=== PATIENT | female | born 1980 | race Asian ===

== ENCOUNTER → 2017-08-15 | Outpatient (CLI) | payer BC ==
[~2017-08-15] MED LIST: FERR325T51 PO; OXYC-57 PO; PRENTAB26 PO
[2017-08-15 16:54] LABS: URINE APPEARANCE CLEAR (CLEAR); URINE BILIRUBIN NEG (NEG); URINE COLOR DK YELLOW; URINE NITRITE NEG (NEG); UROBILINOGEN NEG (NEG)
[2017-08-15 17:00] LABS: MANUAL MICROSCOPIC REQUIRED? NO; REVIEW REQ? NO
== END | disposition home or self-care (01) ==
LOC: C.LABSPEC 15:51
PROVIDERS: ATTEND Obstetrics & Gynecology
DX: O09.521 Supervision of elderly multigravida, first trimester (principal)

== ENCOUNTER → 2017-08-21 | Outpatient (CLI) | payer BC | END | disposition home or self-care (01) | LOC: C.PAPS 08:04 | PROVIDERS: ATTEND Obstetrics & Gynecology | DX: Z01.419 Encounter for gynecological examination (general) (routine) without abnormal findings (principal) ==

== ENCOUNTER → 2017-08-21 | Outpatient (CLI) | payer BC ==
[2017-08-24 00:55] LABS: CHLAMYDIA TRACH RNA*** NOT DETECTED (NOT DETECTED); GC (NEIS GONORRHOEAE)RNA** NOT DETECTED (NOT DETECTED)
== END | disposition home or self-care (01) ==
LOC: C.LABSPEC 17:27
PROVIDERS: ATTEND Obstetrics & Gynecology
DX: O09.521 Supervision of elderly multigravida, first trimester (principal)

== ENCOUNTER → 2017-08-21 | Outpatient (CLI) | payer BC ==
[2017-08-21 15:38] LABS: BASO % 0.1 %; BASO ABS # 0.01 K/uL (0-0.2); COMPLETE YES; EOS % 2.1 %; HEMATOCRIT 36.2 % (37-47); IG% 0.6 %; LYMPH % 19.4 %; MEAN CELL VOLUME 89.4 fL (80-100); MEAN CORPUSCULAR HEMOGLOBIN 30.6 pg (25-34); MEAN CORPUSCULAR HGB CONC 34.3 g/dl (32-36); MEAN PLATELET VOLUME 9.5 fL (7.4-10.4); MONO % 9.2 %; NEUT % 68.6 %; PLATELET COUNT 231 K/uL (130-400); RED BLOOD COUNT 4.05 M/uL (4.2-5.4); WHITE BLOOD COUNT 7.72 K/uL (4.8-10.8)
== END | disposition home or self-care (01) ==
LOC: C.LAB1850 14:41
PROVIDERS: ATTEND Obstetrics & Gynecology
DX: O09.521 Supervision of elderly multigravida, first trimester (principal)

== ENCOUNTER → 2018-01-04 | Outpatient (CLI) | payer BC, OTHER ==
[2018-01-04 15:19] LABS: HEMATOCRIT 33.6 % (37-47); HEMOGLOBIN 11.6 g/dL (12.0-16.0)
== END | disposition home or self-care (01) ==
LOC: C.LAB1850 14:13
PROVIDERS: ATTEND Obstetrics & Gynecology
DX: O09.523 Supervision of elderly multigravida, third trimester (principal)

== ENCOUNTER → 2018-02-01 | Outpatient (CLI) | payer OTHER | END | disposition home or self-care (01) | LOC: C.LABSPEC 13:38 | PROVIDERS: ATTEND Obstetrics & Gynecology | DX: O23.40 Unspecified infection of urinary tract in pregnancy, unspecified trimester (principal) ==

== ENCOUNTER 2018-03-25 04:49 | Inpatient (IN) | payer OTHER ==
[2018-03-25] VITALS (10 sets, daily range): BP systolic 99–118; BP diastolic 62–68; PULSE 67–80; TEMP 36.9–37.6; O2SAT 94–97; Ht 157.5 cm; Wt 68.0 kg
[~2018-03-25] VITALS: Ht 157.5 cm; Wt 68.0 kg
[~2018-03-25 04:49] MED LIST changes: -FERR325T51 PO; -OXYC-57 PO
[2018-03-25] MEDS ORDERED: LACTATED RINGER'S 1000ML 1,000 ML IV PRN (04:51)
[2018-03-25] MEDS ORDERED: BUPIVACAINE 0.25% 30 ML VIAL ONE (05:06)
[2018-03-25] MEDS ORDERED: EpHEDrine SULFATE INJ 50 MG/ML AMP ONE (05:07)
[2018-03-25] MEDS ORDERED: FENTANYL CITRATE INJ 50 MCG/1 ML 2 ML VIAL ONE ×2 (05:07→13:33)
[2018-03-25] MEDS ORDERED: FENTANYL 2MCG/ML ROPIV 1.25MG/ML 100ML BAG ONE (05:08)
[2018-03-25] MEDS ORDERED: PENICILLIN G POTASSIUM IV 6 MU in DEXTROSE 5% 250ML 250 ML IV ONE (05:30)
[2018-03-25] MEDS ORDERED: PENICILLIN G POTASSIUM IV 3 MU in DEXTROSE 5% 100ML 100 ML IV PRN (05:30)
[2018-03-25 05:41] LABS: HEMOGLOBIN 12.8 g/dL (12.0-16.0); MEAN CELL VOLUME 88.5 fL (80-100); MEAN CORPUSCULAR HEMOGLOBIN 31.4 pg (25-34); MEAN CORPUSCULAR HGB CONC 35.6 g/dl (32-36); MEAN PLATELET VOLUME 10.1 fL (7.4-10.4); PLATELET COUNT 158 K/uL (130-400); RED CELL DISTRIBUTION WIDTH CV 13.7 % (11.5-14.5); WHITE BLOOD COUNT 9.32 K/uL (4.8-10.8)
[2018-03-25] MEDS ORDERED: NALOXONE HCL INJ 1 MG in SODIUM CHLORIDE 0.9% 1000ML 1,000 ML IV PRN (06:23)
[2018-03-25] MEDS ORDERED: LACTATED RINGER'S 1000ML 500 ML IV PRN ×2 (06:23→09:57)
[2018-03-25] MEDS ORDERED: NALBUPHINE HCL INJ 10 MG/ML AMP IV PRN (06:30)
[2018-03-25] MEDS ORDERED: EpHEDrine SULFATE INJ 50 MG/ML AMP IV PRN (06:30)
[2018-03-25] MEDS ORDERED: FENTANYL 2MCG/ML ROPIV 1.25MG/ML 100ML BAG EPI PRN (06:30)
[2018-03-25] MEDS ORDERED: DiphenhydrAMINE HCL 50 MG/ML VIAL IV PRN (06:30)
[2018-03-25] MEDS ORDERED: NALOXONE HCL INJ 0.4 MG/1 ML VIAL/CARP IV PRN (06:30)
[2018-03-25] MEDS: LACTATED RINGER'S 1000ML 1,000 ML IV SCH ×3 (07:06→12:44)
[2018-03-25] MEDS ORDERED: OXYTOCIN 30 UNITS/500ML NSS IV PRN (10:00)
[2018-03-25] MEDS ORDERED: CITRIC ACID/SODIUM CITRATE 15 ML UDC ONE (12:54)
--- NOTE | 2018-03-25 13:15 | History & Physical Bridge Note ---
H&P Re-Evaluation Bridge Note: I have examined the patient, reviewed the History & Physical and in the interval since the performance of the History & Physical I have noted the following changes of clinical significance: No changes noted : Patient presented in active labor & progressed to an anterior lip dilation. Contractions were noted to be inadequate by IUPC. pitocin autmentation of labor was attempted but repeated deep heart decelerations occured. Cervical exam remained unchange. After discussion with both patient & her we will now proceed with repeat LTCS.
[2018-03-25] MEDS ORDERED: CEFAZOLIN IV 2,000 MG in SYRINGE 0 ML IV SCH (13:30)
[2018-03-25] MEDS ORDERED: MoRPHine SULFATE PF 1 MG/ML 10 ML AMP/VIAL ONE (13:43)
[2018-03-25] MEDS ORDERED: LIDOCAINE/EPINEPHRINE 2% 1:200,000 20 ML SDV ONE ×2 (13:43→13:52)
[2018-03-25] MEDS ORDERED: OXYTOCIN INJ 10 UNITS/ML VIAL ONE ×2 (13:43→13:44)
[2018-03-25] MEDS ORDERED: SENNA 8.6 MG TAB PO PRN (14:45)
[2018-03-25] MEDS ORDERED: MAGNESIUM HYDROXIDE SUSP 30 ML UDC PO PRN (14:45)
[2018-03-25] MEDS ORDERED: SUPERCREAM 0.870 % 15GM JAR EXT PRN (14:45)
[2018-03-25] MEDS ORDERED: BENZOCAINE 20% AER SPR 82.5 GM CAN EXT PRN (14:45)
[2018-03-25] MEDS ORDERED: DIPHTHERIA/TETANUS/PERTUSSIS 0.5 ML SYR/VIAL IM. ONE (14:45)
[2018-03-25] MEDS ORDERED: LANOLIN OINT EXT PRN (14:45)
[2018-03-25] MEDS ORDERED: HYDROCORTISONE ACETATE 25 MG SUPP PR PRN (14:45)
--- NOTE | 2018-03-25 14:47 | [facility] Post Operative Brief Note ---
Immediate Operative Summary Operative Date Mar 25, 2018. Pre-Operative Diagnosis 39 weeks gestation failed arrest of descent & dilation non-reassuring heart rate pattern Post-Operative Diagnosis same plus delviery of viable female Procedure(s) Performed repeat low transverse section Surgeon Zoë Menendez MD County Judge Surgeon(s) Henrique Green PGY-1 Estimated Blood Loss 500 Findings Consistent with Post-Op Diagnosis Fluids (cc crystalloids) 1900 Specimens placenta Drains Jerry to straight drainage Anesthesia Type MAC Epidural Complication(s) none Disposition Accompanied Pt To Recover: yes Disposition: L&D
[2018-03-25] MEDS ORDERED: MoRPHine SULFATE PF 1 MG/ML 10 ML AMP/VIAL EPI PRN (15:00)
[2018-03-25] MEDS ORDERED: CONTINUE MEDICATION ONE (15:00)
[2018-03-25] MEDS ORDERED: KETOROLAC TROMETHAMINE 30 MG/ML VIAL IV. PRN (15:00)
[2018-03-25] MEDS ORDERED: DC INTRASPINAL MORPHINE PRN (15:00)
[2018-03-25] MEDS ORDERED: MoRPHine SULFATE 2 MG/ML CARP IV PRN (15:00)
[2018-03-25] MEDS ORDERED: MEPERIDINE HCL 25 MG/ML CARP IV PRN (15:00)
[2018-03-25] MEDS ORDERED: NO NARCOTICS OR SEDATIVES SCH (15:00)
[2018-03-25] MEDS: OXYTOCIN INJ 20 UNITS in LACTATED RINGER'S 1000ML 1,000 ML IV SCH ×2 (15:43→22:59)
[2018-03-25] MEDS: ONDANSETRON INJ 2 MG/ML 2 ML VIAL IV PRN ×2 (15:44→23:21)
--- NOTE | 2018-03-25 15:46 | Anesthesiology Progress Note ---
Anesthesia Post Op Note Date & Time Mar 25, 2018 at 15:45 Vital Signs Pain Intensity: 0.0 Notes Mental Status: alert / awake / arousable, participated in evaluation Pt Amnestic to Procedure: Yes Nausea / Vomiting: adequately controlled Pain: adequately controlled Airway Patency, RR, SpO2: stable & adequate BP & HR: stable & adequate Hydration State: stable & adequate Neuraxial Anesthesia: was administered, sensory block is resolving Anesthetic Complications: no major complications apparent
--- NOTE | 2018-03-25 17:12 | OPERATIVE REPORT ---
DATE OF OPERATION: 03/25/2018 SURGEON: Zoë Menendez MD HARDWARE SALES ASSISTANT: Henrique Green, PGY-1. PRINCIPAL DIAGNOSES: Intrauterine at 40 weeks, failed vaginal after attempt, arrest of dilation and descent, and nonreassuring heart rate pattern. HISTORY: The patient is a 38-year-old 3, para 1-0-1-1 female, EDC of 03/25/2018 who presented on the morning of her scheduled repeat section in active labor. She progressed rapidly to 9 cm dilated at which point, there was moderate variable decelerations as well as inadequate contractions. She remained at 9 cm and progressed to anterior lip but the presenting part still remained at approximately -2 to -1 station. Pitocin augmentation was attempted after an IUPC was placed, however, there continued to be [id number] decelerations with contractions. It is felt prudent at this point to proceed with repeat transverse section. The patient and her are agreeable to this plan. GROSS FINDINGS: Uterus is gravid and consistent with her term and size. Bilateral ovaries and fallopian tubes are grossly normal. PROCEDURE: After patient received adequate epidural anesthesia, she was prepped and draped in usual fashion. A low transverse skin incision was made just inferior to the previous scar as there was a keloid formation present. The scar was removed in its entirety using Allis clamps and Metzenbaum scissors. The incision was taken to the fascia with the same scalpel. The fascial incision was then extended with Alexander scissors. The underlying rectus muscles were bluntly and sharply dissected along the midline. There was a dense fibrous tissue in the abdominal wall near the umbilicus which a scalpel was used to incise for better visibility. The bladder was then taken down off the anterior surface of the uterus and placed behind the bladder blade. The lower uterine segment was entered with the scalpel and extended transversely. The was delivered from the vertex occiput anterior presentation with moderate fundal pressure and a vacuum assist. There was clear fluid upon entering the amniotic sac. There was vigorous crying and the was moving all 4 limbs upon delivery. The cord was clamped and cut and handed off to Dr. Gonsalez who was in attendance as hand rug braider. The placenta was then expressed intact with the 3-vessel cord and cord gases were sent. The uterus was then exteriorized and covered with clean lap sponge. The uterine cavity was explored and found to be free off any placental tissue or membranes. The uterus was closed in 2 layers in a running locking imbricating fashion with 0 Monocryl. Hemostasis was noted to be excellent. The posterior cul-de-sac was then irrigated with normal saline. The uterus was then placed back inside the abdominal cavity and the gutters were explored and found to be free of any clot or fluid. The rectus muscles were brought together on the midline with individual stitches of 0 Monocryl after ensuring that the uterine incision was still dry. The fascia was then closed in a running fashion with 0 Vicryl. The edges of the skin incision were then freed up with the Bovie. After irrigating the adipose layer, the skin was closed in a subcuticular fashion with 4-0 Vicryl. Urine was clear at the end of the case. Mother and were doing well after delivery. I attest to the content of the Intraoperative Record and any orders documented therein. Any exceptions are noted below. GONZÁLEZ
[2018-03-25] MEDS: DOCUSATE SODIUM 100 MG CAP PO SCH (20:02)
[2018-03-26] VITALS (12 sets, daily range): BP systolic 92–98; BP diastolic 53–58; PULSE 69–81; TEMP 36.3–37.4; O2SAT 94–96
[2018-03-26 06:38] LABS: BASO % 0.1 %; BASO ABS # 0.01 K/uL (0-0.2); EOS % 0.3 %; EOS ABS # 0.02 K/uL (0-0.5); HEMATOCRIT 30.9 % (37-47); HEMOGLOBIN 10.4 g/dL (12.0-16.0); IG# 0.01 K/uL (0.00-0.02); LYMPH % 19.6 %; LYMPH ABS # 1.33 K/uL (1.2-3.4); MEAN CELL VOLUME 90.1 fL (80-100); MEAN CORPUSCULAR HEMOGLOBIN 30.3 pg (25-34); MEAN CORPUSCULAR HGB CONC 33.7 g/dl (32-36); MEAN PLATELET VOLUME 9.9 fL (7.4-10.4); MONO % 6.8 %; MONO ABS # 0.46 K/uL (0.11-0.59); NEUT % 73.1 %; NEUT ABS # 4.97 K/uL (1.4-6.5); PLATELET COUNT 140 K/uL (130-400); RED CELL DISTRIBUTION WIDTH CV 13.8 % (11.5-14.5); RED CELL DISTRIBUTION WIDTH SD 45.6 fL (36.4-46.3)
--- NOTE | 2018-03-26 06:44 | Progress Note ---
Subjective March 26, 2018. Subjective conversation w/ patient Ambulation: limited ambulation Voiding: bacon catheter in place Passing Gas: No Diet Tolerance: Clear Liquids Lochia: Moderate Feeding Type: Breast Feeding Pain: 2/10, improved with analgesia Review of Systems Constitutional: No fever, No chills Respiratory: + cough, No shortness of breath Cardiac: No chest pain Abdomen: No nausea, No vomiting Objective Vital Signs Date Time Temp Pulse Resp B/P (MAP) Pulse Ox O2 Delivery O2 Flow Rate FiO2 03/26/18 04:30 18 94 03/26/18 04:00 37.4 78 16 92/58 (69) 95 Room Air 03/26/18 03:30 18 95 03/26/18 02:25 18 95 03/26/18 01:30 18 96 03/26/18 00:30 16 95 03/25/18 23:25 36.9 80 16 99/68 (78) 95 Room Air 03/25/18 23:25 18 95 03/25/18 23:25 95 Room Air 03/25/18 22:30 18 95 03/25/18 21:27 20 96 03/25/18 20:30 18 97 03/25/18 20:10 37.0 80 18 118/62 (80) 95 Room Air 03/25/18 19:30 18 95 03/25/18 18:44 14 94 03/25/18 18:40 37.2 67 14 112/62 (79) 94 Room Air 03/25/18 17:48 16 95 03/25/18 17:44 37.6 72 16 114/63 (80) 95 Room Air 03/25/18 17:20 Room Air Physical Exam General Appearance: WELL-APPEARING, WD/WN, NO APPARENT DISTRESS Respiratory/Chest: lungs clear, normal breath sounds Cardiovascular: regular rate, rhythm Abdomen: soft Fundus: Firm, Tender, Relation to Umbilicus (1 above) Incision Description: Clean, Dry & Intact Extremities: no pedal edema Laboratory Results Last 24 Hours Test 03/25/18 07:47 03/26/18 06:08 Bedside Glucose 106 mg/dl White Blood Count 6.80 K/uL Red Blood Count 3.43 M/uL Hemoglobin 10.4 g/dL Hematocrit 30.9 % Mean Corpuscular Volume 90.1 fL Mean Corpuscular Hemoglobin 30.3 pg Mean Corpuscular Hemoglobin Concent 33.7 g/dl Platelet Count 140 K/uL Mean Platelet Volume 9.9 fL Neutrophils (%) (Auto) 73.1 % Lymphocytes (%) (Auto) 19.6 % Monocytes (%) (Auto) 6.8 % Eosinophils (%) (Auto) 0.3 % Basophils (%) (Auto) 0.1 % Neutrophils # (Auto) 4.97 K/uL Lymphocytes # (Auto) 1.33 K/uL Monocytes # (Auto) 0.46 K/uL Eosinophils # (Auto) 0.02 K/uL Basophils # (Auto) 0.01 K/uL RDW Standard Deviation 45.6 fL RDW Coefficient of Variation 13.8 % Immature Granulocyte % (Auto) 0.1 % Immature Granulocyte # (Auto) 0.01 K/uL Medications Current Inpatient Medications Medications (Trade) Dose Ordered Sig/Yang Route Start Time Stop Time Status Last Admin Dose Admin Lactated Ringer's 1,000 ml @ 125 mls/hr Q8H IV 03/25/18 04:51 03/27/18 04:50 03/25/18 12:44 125 MLS/HR Lactated Ringer's 1,000 ml @ 999 mls/hr Q1H1M PRN IV 03/25/18 04:51 04/24/18 04:50 03/25/18 05:51 999 MLS/HR Penicillin G Potassium 3 mu/ Dextrose 106 ml @ 100 mls/hr Q4H PRN IV 03/25/18 05:30 03/27/18 05:29 03/25/18 09:31 100 MLS/HR Naloxone HCl (Narcan Inj) 0.1 mg UD PRN IV 03/25/18 06:30 03/26/18 10:00 Lactated Ringer's 500 ml @ 999 mls/hr Q31M PRN IV 03/25/18 06:23 03/26/18 10:00 Ephedrine Sulfate (EpHEDrine SULFATE INJ) 10 mg Q5M PRN IV 03/25/18 06:30 03/26/18 10:00 Diphenhydramine HCl (Benadryl Inj) 25 mg Q6H PRN IV 03/25/18 06:30 03/26/18 10:00 Nalbuphine HCl (Nubain Inj) 5 mg Q10M PRN IV 03/25/18 06:30 03/26/18 10:00 Naloxone HCl 1 mg/ Sodium Chloride 1,002.5 ml @ 50 mls/hr Q20H3M PRN IV 03/25/18 06:23 03/26/18 10:00 Ondansetron HCl (Zofran Inj) 4 mg Q6H PRN IV 03/25/18 06:30 03/26/18 10:00 03/25/18 23:21 4 MG Oxytocin (Pitocin IV) 30 units UD PRN IV 03/25/18 10:00 04/24/18 09:59 03/25/18 12:03 30 UNITS Lactated Ringer's 500 ml @ 999 mls/hr Q31M PRN IV 03/25/18 09:57 04/24/18 09:56 Cefazolin Sodium 2000 mg/Syringe 15 ml @ 225 mls/hr PREOP@1330 IV 03/25/18 13:30 03/26/18 13:29 03/25/18 13:32 225 MLS/HR Oxytocin 20 units/ Lactated Ringer's 1,002 ml @ 125 mls/hr Q8H1M IV 03/25/18 14:45 03/26/18 06:46 03/25/18 22:59 125 MLS/HR Ketorolac Tromethamine (Toradol Inj) 30 mg Q6H PRN IV. 03/26/18 10:00 03/31/18 09:59 Oxycodone/ Acetaminophen (Percocet 5-325mg Tab) 1 tab Q4H PRN PO 03/26/18 10:00 04/09/18 09:59 Oxycodone/ Acetaminophen (Percocet 5-325mg Tab) 2 tab Q4H PRN PO 03/26/18 10:00 04/09/18 09:59 Ibuprofen (Motrin Tab) 600 mg Q4H PRN PO 03/25/18 14:45 04/24/18 14:44 Ondansetron HCl (Zofran Inj) 4 mg Q4H PRN IV 03/26/18 10:00 04/25/18 09:59 Prenat Multivit/ [place]/Iron/Folic Ac ( Vitamin Tab) 1 tab DAILY PO 03/26/18 08:00 04/25/18 07:59 Bisacodyl (Dulcolax Tab) 5 mg HS ONCE PO 03/26/18 22:00 03/26/18 22:01 Bisacodyl (Dulcolax Supp) 10 mg PRN PRN ND 03/27/18 14:45 04/26/18 14:44 Docusate Sodium (coLACE CAP) 100 mg BID PO 03/25/18 20:00 04/24/18 19:59 03/25/18 20:02 100 MG Magnesium Hydroxide (Milk Of Magnesia Susp) 30 ml HS PRN PO 03/25/18 14:45 04/24/18 14:44 Cocaine HCl (Supercream 0.870% Cr) BID PRN EXT 03/25/18 14:45 04/08/18 14:44 Lanolin (Lanolin Oint) PRN PRN EXT 03/25/18 14:45 04/24/18 14:44 Hydrocortisone Acetate (Anusol Hc Supp) 25 mg BID PRN ND 03/25/18 14:45 04/24/18 14:44 Benzocaine (Dermoplast Aero Spr) 1 appln PRN PRN EXT 03/25/18 14:45 04/24/18 14:44 Zolpidem Tartrate (Ambien Tab) 5 mg HSZ PRN PO 03/26/18 10:00 04/25/18 09:59 Diphenhydramine HCl (Benadryl Cap) 25 mg QID PRN PO 03/26/18 10:00 04/25/18 09:59 Diphenhydramine HCl (Benadryl Inj) 25 mg QID PRN IV 03/26/18 10:00 04/25/18 09:59 Senna (Senokot Tab) 17.2 mg HS PRN PO 03/25/18 14:45 04/24/18 14:44 Ketorolac Tromethamine (Toradol Inj) 30 mg Q6H PRN IV. 03/25/18 15:00 03/26/18 10:00 03/25/18 17:15 30 MG Meperidine HCl (Demerol Inj) 25 mg Q15M PRN IV 03/25/18 15:00 03/26/18 10:00 Miscellaneous Information (Dc Intraspinal Morphine) 1 ea DIRECTED PRN N/A 03/25/18 15:00 03/26/18 10:00 Miscellaneous Information (No Narcotics Or Sedatives) 1 ea UD N/A 03/25/18 15:00 03/26/18 10:00 Morphine Sulfate (Duramorph Pf Inj) TODAY PRN EPI 03/25/18 15:00 03/26/18 10:00 Morphine Sulfate (MoRPHine SULFATE INJ) 2 mg Q6H PRN IV 03/25/18 15:00 03/26/18 10:00 Assessment and Plan Post-Op Day#: 1 Continue Routine Care: Resident Physician Supervision Note: I interviewed and examined the patient. Discussed with Dr. Duong and agree with findings and plan as documented in the note. Any exceptions or clarifications are listed here: [None] Documented By: Zoë Diaz Laquita 38 s/p repeat due to failed day 1 - O+, Rubella Immune, GBS +ve - pt doing well clinically - Vital Signs reviewed and WNL - Hemoglobin Reviewed. 12.8 -> 10.4 - remove catheter this AM and encourage ambulation - monitor and control pain with analgesia - advance diet as tolerated Henrique Green, PGY1 Resident Tracking Resident Involvement: Resident Care Provided Care Provided: OB Delivery
--- NOTE | 2018-03-26 07:10 | Discharge Instructions ---
Discharge Instructions Date of Service March 26, 2018. Admission Reason for Admission: LABOR Discharge Discharge Diagnosis / Problem: Discharge Goals Goal(s): Routine recovery after Medications Continue Dispensed Medications: supercream, dermaplast, tucks, lansinoh Activity Recommendations Activity Limitations: per Instructions/Follow-up section . Instructions / Follow-Up Instructions / Follow-Up ACTIVITY RECOMMENDATIONS: * Gradual return to full activity over the next 2-3 weeks. * No lifting - nothing heavier than baby over the next 2-3 weeks. * Do not engage in vigorous exercise, sexual activity or sports until cleared by your physician. * Do not drive or operate any motorized equipment until cleared by your physician. * You may shower/bathe daily. MEDICATIONS: For discomfort or pain, you may use Acetaminophen (Tylenol), Ibuprofen (Advil), or Naproxen (Aleve) following the package directions. For constipation you may use Colace following the package directions. BREAST CARE: If you are not breast feeding: * Wear a supportive bra 24 hours a day for one to two weeks. * Avoid stimulating your breasts and nipples as much as possible during the first few weeks after delivery. * When taking a shower, have the warm water hit your back, not breasts. * When your breasts feel full, apply ice packs. Usually three to four times a day helps ease the discomfort. * Take a mild pain medication (Tylenol / Motrin) when you are uncomfortable. If breast feeding: * Use breast milk to lubricate nipples. Lansinoh cream may be used for sore nipples. You do not need to remove cream prior to breast feeding. If using a different brand of cream, check the label for directions regarding removal of cream prior to nursing. * Wear a supportive bra. * If having problems with breasts or breast feeding, call a decorator consultant or your health care provider. SPECIAL CARE INSTRUCTIONS: When you are discharged from the hospital, it is important for you to follow the instructions listed below: * During the first week at home, you should be able to care for yourself and your baby. In addition, the usual light household activities are encouraged. * Limit your activities to the way you feel. Do not try to clean the house or move furniture. Be sensible. * If you actively engage in sports and have done so up until the time of your delivery, you may resume these activities as soon as you feel able. This may take up to one month or even longer. Use good judgment. * Continue to take your vitamins for at least six weeks after the of your baby. * Your diet need not be limited unless you were on a special diet before your delivery. Breast-feeding mothers need around 2500 calories per day and at least 64-80 ounces of fluid per day (8 to 10 glasses). * You should eat foods from the four major food groups. Crash diets or fad diets are to be avoided. Eating lean meats, fresh fruits and vegetables, low-fat dairy products, high fiber foods and a regular exercise program, will help you get back to your pre- weight without putting your health at risk. * Constipation is sometimes a problem after delivery. Take a mild laxative as needed. If breast feeding, Milk of Magnesia is acceptable to use. You may use a suppository or Fleets enema. * A daily shower or tub bath is suggested. Wash incision daily with warm soapy water and pat dry. It doesn't need to be covered unless drainage is present. * A bloody vaginal discharge will usually continue until around four weeks . A small amount of bleeding may continue for as long as six weeks. Vaginal discharge changes from the bright red bleeding after delivery to pink then brownish and finally yellowish-pink before becoming white and disappearing. * Bleeding may increase with activity. Your first period may come in 4-8 weeks. If you are breast feeding, your period may be delayed even longer. * [place] (sex) can begin whenever both you and your partner feel comfortable and do not have any form of genital infection. It is recommended that you wait at least six weeks for internal and external healing to occur. If you have questions, please talk to your health care practitioner. A condom should be used to prevent infection and . * Foreplay, gentle intercourse and lubrication is very important the first several times to prevent pain. A water-based lubricant such as K-Y jelly or Astroglide may be used. * If you have RH negative blood and your baby is RH positive, you will receive RHOGAM by injection prior to discharge. The nurse will give you a card to keep with you that has the date and place that you received RHOGAM after delivery. * During your care, you had a Rubella screen done to check for the presence of rubella antibodies in your blood. If your test was negative, you will receive a Rubella vaccine prior to discharge. This vaccine may cause a fever, soreness at the injection site and flu-like symptoms. If these symptoms persist, notify your health care practitioner. is not advised for one month after a Rubella vaccine. * Verbalizes understanding of car seat law as reviewed with patient nursing. * Car Seat hand-out given and reviewed with patient by nursing. * Shaken baby information reviewed with patient by nursing. Call you doctor if: * Heavy bleeding (saturating several pads an hour) or passing clots the size of your fist. * A fever >101 degrees F (38.3 degrees C) on two occasions four hours apart and /or chills. * Unusual pain in the pelvic or vaginal areas. * Call the doctor for any increased redness, drainage or swelling around the incision and any pain unrelieved by prescribed pain medication. * "Baby Blues" lasting longer than two weeks. If you have any questions or concerns, call your health care practitioner at . FOLLOW UP VISIT: * Please call the office at to schedule a 6 week examination. It is important you keep this appointment. It is important for you to make arrangements for either yearly or twice yearly check-ups thereafter. Current Hospital Diet Patient's current hospital diet: Clear Liquid Diet Discharge Diet Recommended Diet: Regular Diet Procedures Procedures Performed: repeat low transverse section Pending Studies Studies pending at discharge: no Medical Emergencies . Who to Call and When: Medical Emergencies: If at any time you feel your situation is an emergency, please call [phone] immediately. . Non-Emergent Contact Non-Emergency issues call your: Primary Care Provider . . "Provider Documentation" section prepared by Henrique Green. .
[2018-03-26] MEDS ORDERED: PRENATAL VITAMIN TAB PO SCH (08:00)
[2018-03-26] MEDS: PRENATAL VITAMIN TAB PO SCH (08:31)
[2018-03-26] MEDS ORDERED: MTR600X PO (08:31)
[2018-03-26] MEDS ORDERED: OXYC-57 PO (08:31)
[2018-03-26] MEDS: DOCUSATE SODIUM 100 MG CAP PO SCH ×2 (08:31→19:46)
[2018-03-26] MEDS ORDERED: ZOLPIDEM TARTRATE 5 MG TAB PO PRN (10:00)
[2018-03-26] MEDS ORDERED: KETOROLAC TROMETHAMINE 30 MG/ML VIAL IV. PRN (10:00)
[2018-03-26] MEDS ORDERED: ONDANSETRON INJ 2 MG/ML 2 ML VIAL IV PRN (10:00)
[2018-03-26] MEDS ORDERED: DiphenhydrAMINE HCL 50 MG/ML VIAL IV PRN (10:00)
[2018-03-26] MEDS ORDERED: OXYCODONE/ACETAMINOPHEN 5-325 TAB PO PRN ×2 (10:00)
[2018-03-26] MEDS: IBUPROFEN 600 MG TAB PO PRN (19:48)
[2018-03-26] MEDS ORDERED: BISACODYL 5 MG TABEC PO ONE (22:00)
[2018-03-27 00:30] VITALS: BP 100/61; PULSE 64; TEMP 36.9
[2018-03-27 06:23] LABS: HEMATOCRIT 29.1 % (37-47)
--- NOTE | 2018-03-27 07:02 | Progress Note ---
Subjective March 27, 2018. Subjective conversation w/ patient Ambulation: ambulating normally Voiding: no voiding problems, bacon catheter in place Diet Tolerance: Regular Diet Lochia: Moderate Feeding Type: Breast Feeding Pain: 2/10 pain, improved with analgesia Review of Systems Constitutional: No fever, No chills Respiratory: + cough (improving cough from prior viral illness) Cardiac: No chest pain Abdomen: No nausea, No vomiting Objective Vital Signs Date Time Temp Pulse Resp B/P (MAP) Pulse Ox O2 Delivery O2 Flow Rate FiO2 03/27/18 00:30 Room Air 03/27/18 00:30 36.9 64 18 100/61 (74) Room Air 03/26/18 15:05 95 Room Air 03/26/18 15:05 36.9 81 16 96/55 (69) 95 Room Air 03/26/18 11:25 37.3 76 16 93/53 (66) 95 Room Air 03/26/18 09:30 16 96 03/26/18 08:30 16 95 03/26/18 08:00 36.3 69 18 98/58 (71) 94 Room Air 03/26/18 07:30 95 Room Air 03/26/18 07:30 16 95 Physical Exam General Appearance: WELL-APPEARING, WD/WN, NO APPARENT DISTRESS Respiratory/Chest: lungs clear, normal breath sounds Cardiovascular: regular rate, rhythm Abdomen: soft Fundus: Firm, Tender, Relation to Umbilicus (1 below) Incision Description: Clean, Dry & Intact Extremities: no pedal edema, no calf tenderness Laboratory Results Last 24 Hours Test 03/27/18 06:07 Hemoglobin 10.0 g/dL Hematocrit 29.1 % Assessment and Plan Post-Op Day#: 2 Continue Routine Care: 38 s/p repeat due to failed day 2 - O+, Rubella Immune, GBS +ve - pt doing well clinically - Vital Signs reviewed and WNL - Hemoglobin stable at 10 - monitor and control pain with analgesia - anticipate discharge tonight - will review d/c instructions Resident Physician Supervision Note: I interviewed and examined the patient. Discussed with Dr. Green and agree with findings and plan as documented in the note. Any exceptions or clarifications are listed here: Patient desires d/c today. Meeting criteria. Instructions given. Documented By: Suly Bearden Resident Tracking Resident Involvement: Resident Care Provided Care Provided: OB Delivery
[2018-03-27 08:30] VITALS: BP 122/72; PULSE 71; TEMP 36.7; O2SAT 97
[2018-03-27] MEDS: DOCUSATE SODIUM 100 MG CAP PO SCH (08:30)
[2018-03-27] MEDS: PRENATAL VITAMIN TAB PO SCH (08:30)
[2018-03-27] MEDS: IBUPROFEN 600 MG TAB PO PRN (08:30)
[2018-03-27] MEDS ORDERED: BISACODYL 10 MG SUPP PR PRN (14:45)
[2018-03-27 15:30] VITALS: BP 112/68; PULSE 64; TEMP 36.7; O2SAT 96
[2018-03-27 17:43] VITALS: BP_DIAS 68; PULSE 64; TEMP 36.7
--- NOTE | 2018-03-29 01:18 | DISCHARGE SUMMARY ---
PRINCIPAL DIAGNOSIS: Intrauterine at 40 weeks, failed vaginal after , arrest of dilatation and descent and nonreassuring heart rate pattern. PRINCIPAL PROCEDURE: Repeat low transverse section. HISTORY: The patient is a 38-year-old 3, para 1-0-1-1 female who presented the morning of her scheduled repeat section in active labor. She progressed rapidly to 9 cm dilated and at which point there was moderate variable decelerations as well as inadequate contractions. Despite Pitocin augmentation, contractions continued to be mild and heart rate decelerations were noted with her contractions. At this point, it was felt prudent to proceed with the repeat section as planned. This was done without any complications, although she had significant the dense scar tissue in her abdominal wall. She had an uncomplicated postop course. She was eating regular food on her 1st postop day. She remained afebrile throughout her hospital stay. Hemoglobin on admission was 12.8, hematocrit 36.0. Second postop day, hemoglobin 10.0, hematocrit 29.1. She was sent home in good condition with prescriptions for Percocet 1-2 tablets p.o. q. 4 hours p.r.n. pain, Motrin 600 mg p.o. q. 4 hours p.r.n. pain. She is to call for an appointment in 6 weeks for postop visit. She is also to call for temperature of 101 degrees or higher, heavy vaginal bleeding, burning with urination, increased redness, drainage or pain in her incision, calf tenderness or any other concerns.
== END 2018-03-27 19:10 | disposition home or self-care (01) | DRG 766 ==
LOC: C.OPB 04:49 → C.LD 04:49 → C.OPB 06:32 → C.OBG 18:18
PROVIDERS: ADMIT Obstetrics & Gynecology; ATTEND Obstetrics & Gynecology
PROC: 10D00Z1 Extraction of Products of Conception, Low, Open Approach (ICD-10-PCS; principal; 2018-03-25)
DX: O66.41 Failed attempted vaginal birth after previous cesarean delivery (principal); Z3A.39 39 weeks gestation of pregnancy; O32.4XX0 Maternal care for high head at term, not applicable or unspecified; O62.0 Primary inadequate contractions; Z37.0 Single live birth